=== PATIENT | female | born 1965 | race Caucasian/White ===

== ENCOUNTER 2017-02-11 08:07 | Observation (INO) | payer SELFPAY ==
[2017-02-11] MEDS ORDERED: C5 PO (13:03)
[2017-02-11] MEDS ORDERED: VENTOLIN HFA INH (13:03)
[2017-02-11] MEDS ORDERED: NORCO1 TA1 PO (13:04)
[2017-02-11] MEDS ORDERED: PROTONIX PO (13:04)
[2017-02-11] MEDS ORDERED: PRIN10 PO (13:04)
[2017-02-11] MEDS ORDERED: ZANTAC 150 PO (13:05)
[2017-02-11 15:02] LABS: BASOPHILS 0.6 %; BASOPHILS ABSOLUTE 0.05 10/3/uL (0.0-0.16); EOSINOPHILS 1.9 %; EOSINOPHILS ABSOLUTE 0.17 10/3/uL (0.0-0.53); HEMATOCRIT 35.3 % (36.0-48.0); HEMOGLOBIN 11.6 g/dL (12.0-16.0); IMMATURE GRANULOCYTES 0.2 %; IMMATURE GRANULOCYTES ABSOLUTE 0.02 10/3/uL (0.0-0.11); LYMPHOCYTES 37.6 %; LYMPHOCYTES ABSOLUTE 3.38 10/3/uL (0.67-4.30); MANUAL DIFF NO %; MEAN CORPUS HGB CONC 32.9 g/dL (32.0-36.0); MEAN CORPUSCULAR HEMOGLOB 32.9 pg (26.0-34.0); MEAN PLATELET VOLUME 10.5 fL (9.2-13.0); MONOCYTES 8.4 %; MONOCYTES ABSOLUTE 0.75 10/3/uL (0.21-1.20); NEUTROPHILS 51.3 %; NEUTROPHILS ABSOLUTE 4.61 10/3/uL (2.02-8.40); PLATELET COUNT 269 10/3/uL (150-400); RBC DISTRIBUTION WIDTH 18.2 % (12.0-16.0); RED CELL COUNT 3.53 10/6/uL (4.0-5.6)
[2017-02-11 15:16] LABS: BUN (BLOOD UREA NITROGEN) 5 MG/DL (6-23); CHLORIDE, SERUM 109 MMOL/L (96-112); CHOL/HDL RATIO(NOT ORDER) 4.3 (0-5); CHOLESTEROL 149 MG/DL (< 200); CO2 (CARBON DIOXIDE) 27 MMOL/L (24-34); CREATININE 0.64 MG/DL (0.55-1.02); GFR AFRICAN AMERICAN 121 ML/MIN (>=60); GFR NON AFRICAN AMERICAN 105 ML/MIN (>=60); GLUCOSE, SERUM 100 MG/DL (60-99); HDL CHOLESTEROL 35 MG/DL (> 49); LDL CHOLESTEROL 86 MG/DL (< 130); NON-HDL CHOLESTEROL 114 MG/DL (< 160); POTASSIUM, SERUM 4.3 MMOL/L (3.5-5.3); SODIUM, SERUM 142 MMOL/L (135-148); TRIGLYCERIDE 143 MG/DL (< 150)
[2017-02-11 15:33] LABS: INTERNATIONAL NORMAL RATI 1.2 UNITS (-); PROTIME (NOT ORD) 14.7 SEC (12.0-14.5)
[2017-02-11 15:34] LABS: PARTIAL THROMBO TIME 65.8 SEC (22.5-37.2)
[2017-02-11 20:15] LABS: CPK 62 U/L (0-200)
[2017-02-11 20:16] LABS: CK-MB 2.4 NG/ML
[2017-02-12 04:50] LABS: INTERNATIONAL NORMAL RATI 1.2 UNITS (-); PROTIME (NOT ORD) 15.1 SEC (12.0-14.5)
[2017-02-12 05:05] LABS: CPK 68 U/L (0-200)
[2017-02-12 05:06] LABS: CK-MB 4.9 NG/ML
[2017-02-12 05:07] LABS: TROPONIN I 7.22 NG/ML (<0.05)
[2017-02-12] MEDS ORDERED: PLAVIX PO (17:07)
[2017-02-12] MEDS ORDERED: COREG3 PO (17:08)
[2017-02-12] MEDS ORDERED: ASAB PO (17:08)
[2017-02-12] MEDS ORDERED: LIPITOR40 PO (17:10)
[2017-02-12] MEDS ORDERED: NITROSTAT0.4 MG (17:11)
== END 2017-02-12 17:45 | disposition home or self-care (01) ==
LOC: CORLMH 08:07 → SSU1 12:50
PROVIDERS: Internal Medicine Cardiovascular Disease
PROC: 4A023N8 Measurement of Cardiac Sampling and Pressure, Bilateral, Percutaneous Approach (ICD-10-PCS; principal; 2017-02-11)
DX: I21.4 Non-ST elevation (NSTEMI) myocardial infarction (principal); I10 Essential (primary) hypertension; F17.210 Nicotine dependence, cigarettes, uncomplicated; I25.10 Atherosclerotic heart disease of native coronary artery without angina pectoris; E03.9 Hypothyroidism, unspecified; K21.9 Gastro-esophageal reflux disease without esophagitis; M19.90 Unspecified osteoarthritis, unspecified site; J45.909 Unspecified asthma, uncomplicated; Z88.0 Allergy status to penicillin; Z79.899 Other long term (current) drug therapy; Z98.51 Tubal ligation status; Z90.49 Acquired absence of other specified parts of digestive tract; Z98.890 Other specified postprocedural states; Z86.718 Personal history of other venous thrombosis and embolism; Z79.01 Long term (current) use of anticoagulants
CPT/HCPCS: 80048; 80061; 82550; 82553; 84484; 84703; 85025; 85610; 85730; 92978; 93005; 93458; 99152; 99153; A9270-GY; C1725; C1753; C1769; C1874; C1887; C1894; C8929; C9600; G0378; J0583; J2250; J3010; Q9957; Q9967